=== PATIENT | female | born 1975 | race Caucasian/White ===

== ENCOUNTER → 2018-11-07 | Outpatient (CLI) | payer OTHER ==
[~2018-11-07] MED LIST: LISI1TAB7 PO; VENL75TA PO
--- NOTE | 2018-11-07 15:09 | EKG ---
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 RI6.01 No previous ECG available for comparison Electronically Signed On 11-12-2018 18:31:53 STRATEGIC MARKETING ASSOCIATE by Silviano Mac
[2018-11-07 15:11] LABS: BASO % 1 % (0-3); EOS # 0.2 x10^3/uL (0.0-0.7); EOS % 5 % (0-3); HEMATOCRIT 33.6 % (36.0-47.0); HEMOGLOBIN 10.9 g/dL (12.0-15.5); LYMPH % 27 % (24-48); MEAN CORPUSCULAR HEMOGLOBIN 25 pg (25-35); MEAN CORPUSCULAR HGB CONC 33 g/dL (31-37); MEAN CORPUSCULAR VOLUME 78 fL (79-100); MONO # 0.3 x10^3/uL (0.0-1.1); MONO % 8 % (0-9); NEUT # 2.2 x10^3uL (1.8-7.7); NEUT % 60 % (31-73); PLATELET COUNT 409 x10^3/uL (140-400); RED BLOOD COUNT 4.31 x10^6/uL (3.50-5.40); RED CELL DISTRIBUTION WIDTH 16.7 % (11.5-14.5); WHITE BLOOD COUNT 3.7 x10^3/uL (4.0-11.0)
[2018-11-07 15:17] LABS: BILIRUBIN,URINE NEGATIVE (NEG); CLARITY,URINE CLEAR; COLOR,URINE YELLOW; NITRITE,URINE NEGATIVE (NEG); PROTEIN,URINE NEGATIVE (NEG-TRACE); UROBILINOGEN,URINE 0.2 mg/dL (0.2 mg/dL)
[2018-11-07 15:23] LABS: BACTERIA,URINE FEW /HPF (0-FEW); SQUAMOUS EPITHELIAL CELL,UR OCC /LPF
[2018-11-07 15:24] LABS: ALBUMIN 3.5 g/dL (3.4-5.0); ALBUMIN/GLOBULIN RATIO 0.9 (1.0-1.7); CALCIUM 9.1 mg/dL (8.5-10.1); CREATININE 0.9 mg/dL (0.6-1.0); GFR 68.7; POTASSIUM 3.6 mmol/L (3.5-5.1); TOTAL BILIRUBIN 0.2 mg/dL (0.2-1.0); TOTAL PROTEIN 7.3 g/dL (6.4-8.2)
--- NOTE | 2018-11-07 16:27 | RAD ---
Chest, PA and Lateral: Technique: PA and lateral views of the chest were obtained. History: Preop hysterectomy. Comparison: None. Findings: The heart and pulmonary vasculature appear within normal limits. The lungs are clear. The pleural margins are clear. Impression: No acute chest process is seen. Electronically signed by: Herb Waterman MD (11/07/2018 4:22 PM) [id number]
== END | disposition home or self-care (01) ==
LOC: SURGPAT 14:33
PROVIDERS: ATTEND Obstetrics & Gynecology
DX: Z01.818 Encounter for other preprocedural examination (principal); I10 Essential (primary) hypertension; Z90.710 Acquired absence of both cervix and uterus
CPT/HCPCS: 36415; 71046; 80053; 81001; 85025; 93005

== ENCOUNTER 2018-11-13 08:32 | Inpatient (IN) | payer OTHER ==
[~2018-11-13] VITALS: Ht 162.6 cm; Wt 88.9 kg
[2018-11-13] VITALS (10 sets, daily range): BP systolic 95–125; BP diastolic 55–86
[~2018-11-13 08:32] MED LIST changes: +HYDROmorphone 2 MG/ML VIAL IV PRN; +IV RINGERS,LACTATED 1000ML 1,000 ML IV SCH; +LIDOCAINE 1% PF 2 ML VIAL. ID PRN; +MORPHINE SULFATE 4 MG/ML VIAL. IV PRN; +ONDANSETRON PF 4 MG/2 ML VIAL. IV PRN; +PROCHLORPERAZINE 10 MG/2 ML VIAL. IV PRN; +fentaNYL PF VIAL 100 MCG/2 ML VIAL IV PRN
[2018-11-13 08:55] LABS: U PREG PATIENT NEGATIVE (NEG)
[2018-11-13] MEDS ORDERED: LIDOCAINE 2% PF Vial for OR 5 ML VIAL. ONE (09:47)
[2018-11-13] MEDS ORDERED: ROCURONIUM 50 MG/5 ML VIAL. ONE ×3 (09:47→13:21)
[2018-11-13] MEDS ORDERED: fentaNYL PF VIAL 100 MCG/2 ML VIAL ONE ×2 (09:47→14:40)
[2018-11-13] MEDS ORDERED: PROPOFOL 20 ML IV ONE (09:47)
[2018-11-13] MEDS ORDERED: DEXAMETHASONE SOD PHOS 20 MG/5 ML VIAL. ONE (09:48)
[2018-11-13] MEDS ORDERED: MIDAZOLAM HCL/PF 2 MG/2 ML VIAL. ONE ×2 (09:48→15:45)
[2018-11-13] MEDS ORDERED: ONDANSETRON PF 4 MG/2 ML VIAL. ONE (09:48)
[2018-11-13] MEDS ORDERED: fentaNYL PF VIAL 250 MCG/5 ML VIAL ONE (09:51)
[2018-11-13] MEDS ORDERED: BUPIVACAINE-EPI 0.25%-1:200000 MPF 30 ML VIAL. ONE (10:30)
[2018-11-13] MEDS ORDERED: ESTROGENS, CONJ VAGINAL CREAM 30GM TUBE. ONE (10:30)
[2018-11-13] MEDS ORDERED: METHYLENE BLUE 1% 10 ML VIAL. ONE (10:30)
[2018-11-13] MEDS ORDERED: SEVOFLURANE 61 TO 120 MINUTES. IH ONE (11:30)
[2018-11-13] MEDS ORDERED: ALBUMIN HUMAN 5% 500 ML IV ONE ×2 (12:30→13:06)
[2018-11-13] MEDS ORDERED: GLYCOPYRROLATE 1 MG/5 ML VIAL. ONE (13:36)
[2018-11-13] MEDS ORDERED: NEOSTIGMINE 10 MG/10 ML VIAL. ONE (13:36)
--- NOTE | 2018-11-13 14:20 | PDOC ---
BRIEF OPERATIVE NOTE Date: Nov 13, 2018 Pre-Op Diagnosis menorrhagia, enlarged uterus, anemia Post-Op Diagnosis same plus pelvic adhesive disease Procedure Performed operative scope converted to CHANDRAKANT/LSO/right salpingectomy/adhesiolysis Surgeon Dr. Estrella Hernandez Research And Development Chemist Carrie Botello Anesthesiologist Dr. Ramirez Anesthesia Type: General Blood Loss 2400cc IV Fluid 4L crystalloid, 1000cc albumin Urine Output 150cc clear via lewis Specimens Obtained cervix, uterus, Left tube and ovary, right tube Findings enlarged RV uterus, severe pelvic adhesive disease with Left tube/ovary adhesed to posterior uterus and desc colon; thick area of desc colon adhesed to posterior uterine wall, right tube/ovary adhesed to posterior uterus and right pelvic side wall Complications none Operative Note [id number] ESTRELLA HERNANDEZ MD Nov 13, 2018 14:20
[2018-11-13] MEDS ORDERED: SEVOFLURANE > 120 MINUTES. IH ONE (14:22)
[2018-11-13] MEDS ORDERED: diphenhydrAMINE 50 MG/ML VIAL IV PRN (14:30)
[2018-11-13] MEDS ORDERED: oxyCODONE/APAP 5/325 1 TAB TABLET PO PRN (14:30)
[2018-11-13] MEDS ORDERED: ZOLPIDEM 5 MG TABLET. PO PRN (14:30)
[2018-11-13] MEDS ORDERED: 0.9 % SODIUM CHLORIDE 10 ML DISP.SYRIN. IV PRN (14:30)
[2018-11-13] MEDS ORDERED: diphenhydrAMINE HCL 25 MG CAPSULE PO PRN (14:30)
[2018-11-13] MEDS ORDERED: LACTULOSE 20 GM/30 ML SOLUTION. PO PRN (14:30)
[2018-11-13] MEDS ORDERED: MAG HYDROX/ALUMINUM HYD/SIMETH 30 ML ORAL.SUSP PO PRN (14:30)
[2018-11-13] MEDS ORDERED: NALOXONE 0.4 MG/ML VIAL. IV PRN (14:30)
[2018-11-13] MEDS ORDERED: MAGNESIUM HYDROXIDE 2,400 MG/30 ML ORAL.SUSP. PO PRN (14:30)
[2018-11-13] MEDS ORDERED: ONDANSETRON PF 4 MG/2 ML VIAL. IV PRN (14:30)
[2018-11-13 14:49] LABS: RED BLOOD COUNT 1.98 x10^6/uL (3.50-5.40); RED CELL DISTRIBUTION WIDTH 15.8 % (11.5-14.5); WHITE BLOOD COUNT 10.6 x10^3/uL (4.0-11.0)
[2018-11-13 14:53] LABS: HEMATOCRIT 15.5 % (36.0-47.0); HEMOGLOBIN 5.1 g/dL (12.0-15.5)
--- NOTE | 2018-11-13 15:51 | OP ---
DATE OF SURGERY: 11/13/2018 PREOPERATIVE DIAGNOSES: Menorrhagia, enlarged uterus and anemia. POSTOPERATIVE DIAGNOSES: Menorrhagia, enlarged uterus and anemia with suspected endometriosis and moderate to severe pelvic adhesive disease. PROCEDURE: Operative laparoscopy converted to a CHANDRAKANT-LSO, right salpingectomy and adhesiolysis encompassing at least 15 minutes. SURGEON: Latosha Infante MD. COMMANDING OFFICER TRAFFIC DIVISION: ELKE Neumann. ANESTHESIOLOGIST: Osito Ramirez MD. ANESTHESIA: General. IV FLUIDS: 4 liters of crystalloid and 1000 mL of albumin. ESTIMATED BLOOD LOSS: 2400 mL. URINE OUTPUT: 150 mL. Clear via Mcneil catheter. SPECIMEN OBTAINED: Cervix, uterus, left tube and ovary, right tube. FINDINGS: An enlarged retroverted uterus, severe pelvic adhesive disease with the left tube and ovary adhesed to the posterior uterus and the descending colon, a thick area of the descending colon adhesed to the posterior uterine wall, right tube and ovary adhesed to the posterior uterus and the right pelvic sidewall. COMPLICATIONS: None. DESCRIPTION OF PROCEDURE: This patient was taken to the operating room where general anesthesia was placed. The patient was placed in a dorsal lithotomy position in [facility]. The patient's abdomen and vagina were prepped and draped in the normal sterile fashion and a Mcneil catheter had been inserted under sterile technique. After a timeout was performed, a bivalve speculum was placed in the patient's vagina. A single tooth tenaculum was used to grasp the anterior lip of the cervix. A 10 mL of 0.25% Marcaine with epinephrine was used to circumferentially inject around the cervix for both hemodissection and hemostatic purposes later. The Valtchev uterine manipulator was placed through the endocervical os, locked on the single tooth tenaculum and the bivalve speculum was then removed. Top gloves were discarded and changed. Attention was then turned to the abdomen where a small supraumbilical skin incision was made with the scalpel. A curved Pearl was used to dissect through the subcuticular layer to the fascia. The 5 mm Visiport was used to directly enter the abdominal cavity. Opening patient pressure was 2-3 mmHg. Carbon dioxide gas was used to then appropriately insufflate the abdominal cavity to maintain a pressure of 15 mmHg. The patient was placed in Trendelenburg position. Initially grossly the bowel looked normal, omentum looked normal. Uterus looked enlarged and retroverted, but I could not see tubes and ovaries; bladder appeared normal. So, I went ahead and placed right and left lower quadrant ports under direct visualization. They were all clear on the inside, so transilluminating the abdominal wall, finding an area clear of any vasculature, making a small incision and placing the 5 mm disposable port under direct visualization without difficulty, placing 2 mL of air in each of the cuff. I then did move the camera, looked at the umbilical port, which was clear and placed the air in that one as well. At this point, the LigaSure was obtained and the Maryland's and we went to go manipulate the uterus to look for tubes and ovaries and found pretty severe pelvic adhesive disease on the posterior uterus. The left tube and ovary were completely adhesed to the posterior uterine wall as well as a segment of the descending colon. Descending colon had a large segment adhesed to the posterior uterine wall and the right tube and ovary were adhesed to the posterior uterus and the right pelvic sidewall. After working for a little bit laparoscopically, it was decided especially with the dense colon adhesion, to go ahead and convert to an open procedure as we could not see how far back it went and how deep in went and the left tube and ovary were pretty adhesed as well, not just to the uterus, which was easy to take down, but to the colon as well, so it was decided to convert to open. So, we took the right and left lower quadrant ports out under direct visualization. We released the gas from the cuff, removed them under direct visualization. They were hemostatic. Gas was released from the umbilical port, 2 mL of air was taken out of it as well. All three of those were closed with 4-0 nylon at the skin and injected with local. At this point, a small Pfannenstiel skin incision was made with the scalpel. Bovie cautery was used in the subcuticular layer to maintain hemostasis. The fascia was then scored in the midline and extended sharply and bluntly bilaterally. Ruddy clamps x 2 were placed on the superior fascial edge and the fascia was dissected from the rectus muscles beneath sharply and bluntly as well. Bovie cautery again was used for hemostasis in this layer. The Kochers were then put inferiorly and taken down to the pubic bone and the curved Ramsey scissors were used to take the rectus muscles off the fascia below. The rectus muscles were in the midline and the peritoneum was digitally and bluntly entered and stretched. The O'Nawaf-O'Figueroa retractor was placed, first packing away the bowel with 3 moist laps, placing it in and then placing an upper blade and then a bladder blade lower, placing a curved long pean on the right cornua. The left cornua was so adhesed and pulled down posteriorly, I could not even see it. So, I started with the right round ligament, placing 2-0 Vicryl sutures in it, taking the Bovie cautery and going between it and then starting to create the bladder flap anteriorly. I was able to just manually move the uterus over and tried to put a curved pean on just the side of the uterus, I did not have the cornua because it was still being tented and pulled around from that tube and ovary adhesion posteriorly and twisting the uterus around, but I was able to find the round ligament on the left side, so I placed 2-0 Vicryl stitches on this was well, cauterized between them and then went down and further met that bladder flap anteriorly. I was able to get the right tube up, but the ovary was still stuck, so I went ahead and took the right tube up and went on the right uterine ovarian pedicle and double clamped it with curved Heaneys, cut with Ramsey scissors and suture ligated x 2 and then skeletonized the right side, so I could get the curved Heaneys around the right uterine vessels since the bladder was down in front. Those were doubly clamped. A straight Ruddy was placed for back bleeding and curved Ramsey scissors were used to cut it and then suture ligate it with 0 Vicryl x 2. Staying inside that pedicle, again making sure the bladder was down, straight Heaneys were used to hug the cervix and go through the cardinal and broad ligaments in a couple bites on the right side, double clamping them with curved Heaneys, cutting with the long knife and then suture ligating x 2 with 0 Vicryl. At this point, I did switch sides and I went ahead and just cut the uterine-ovarian pedicle on this side leaving the left tube and ovary as they were severely adhesed. Using blunt dissection to go down the back of the uterus, I was able to get the colon off the back of the uterus as well as the tube and ovary, but I just focused on the hysterectomy at this point and went back at the end and looked at both ovaries. So at this point, I was skeletonizing the left side and then curved Heaneys were placed over the uterine vessels on this side, again a straight Ruddy for backbleeding and cutting with Ramsey scissors and suture ligating x 2 with 0 Vicryl. Staying inside this pedicle again making sure the bladder was down in front, straight Heaneys were placed inside that pedicle going through the cardinal and broad ligaments hugging the cervix, cutting with the long knife and suture ligating with 0 Vicryl. Once this had been done, posteriorly was clear, anteriorly was good and the bladder was down. I believe a couple of more straight Heaneys were taken until I got to the uterosacrals and curved Heaneys were placed over this where they were doubly clamped, cut with Ramsey scissors and entering the vagina and then using the curved scissors and Uma's to amputate the cervix and uterus. Cervix and uterus were passed off in total. Long Ruddy's were placed on the vaginal cuff anterior and posterior and then in interrupted sutures with 2-0 Vicryl, first taking the corner stitch through the uterosacral and tagging them on both sides, interrupted sutures and then in a series of [id number] interrupted stitches, 4 or 5 stitches going across with 2-0 Vicryls closing the cuff and tagging them. Once this was done, I went back, the right ovary looked good. I did close the peritoneum over it as it was adhesed with a 2-0 Vicryl and closed that with excellent results. There was some friable bleeding from the surface of the colon where it had been peeled off, the posterior uterine wall, but nothing overtly bleeding, just surface raw edge bleeding. The cuff looked good and now I was looking at the left tube and ovary. This was completely adhesed and friable and had a cyst on it, so I went ahead and decided to take the left tube and ovary and it looked like it had an endometrial implant on it and a cyst, so I took a Lucy, elevated the left tube and ovary, finished taking down all the adhesions, could feel the ureter low and stayed high right under the ovary on the IP ligament, double clamping it with curved Heaneys and cutting with the curved Ramsey scissors and removed the left tube and ovary. So at this point, all that remained was the right ovary, so the left tube and ovary were passed off as a separate specimen at the end. The cuff had been closed. The right tube came out initially, so the right ovary remains for hormones per patient request. I irrigated with copious irrigation. There was some friable bleeding I had mentioned earlier. I put Eloy over this with excellent results. Again, the remaining right ovary looked good. The cuff looked good. The left ovarian pedicle looked good. The round ligaments looked good. So all of the tags were clipped at this point and the rectus muscles and subcuticular layer were examined, they were hemostatic. So, 0 Vicryl was used to close from the patient's right to just past midline and left to just past midline with two different 0 Vicryl and tied together in the middle. Copious irrigation in the subcutaneous again then revealed hemostasis and 3-0 Vicryl was used to close the subcuticular layer, Stuart's layer and then 3-0 Monocryl was being used to close the skin with Steri-Strips and Dermabond. The patient was stable and is currently being awakened from anesthesia. LATOSHA INFANTE MD DR: MOLLY/jos JOB#: [id number] / [id number]
[2018-11-13] MEDS ORDERED: MIDAZOLAM HCL/PF 2 MG/2 ML VIAL. IV ONE (16:30)
[2018-11-13] MEDS: MORPHINE SULFATE 4 MG/ML VIAL. IV PRN ×2 (17:23→19:44)
[2018-11-13] MEDS: ALPRAZolam 0.25 MG TABLET PO PRN (22:11)
[2018-11-13] MEDS: HYDROcodone/APAP 5/325MG 1 TAB TABLET PO PRN (22:11)
[2018-11-13 23:47] LABS: HEMATOCRIT 26.7 % (36.0-47.0); HEMOGLOBIN 9.1 g/dL (12.0-15.5)
[2018-11-14] MEDS: HYDROcodone/APAP 5/325MG 1 TAB TABLET PO PRN ×3 (05:40→16:04)
[2018-11-14] MEDS: ALPRAZolam 0.25 MG TABLET PO PRN ×2 (06:11→16:03)
[2018-11-14 06:30] VITALS: BP 109/75
[2018-11-14 07:28] LABS: CALCIUM 7.8 mg/dL (8.5-10.1); CREATININE 0.7 mg/dL (0.6-1.0); GFR 91.8; POTASSIUM 3.9 mmol/L (3.5-5.1)
--- NOTE | 2018-11-14 08:51 | PDOC ---
SURGICAL PROGRESS NOTE Subjective feeling better, up drinking coffee. Moderate pain with moving Vital Signs Vital Signs Date Time Temp Pulse Resp B/P (MAP) Pulse Ox O2 Delivery O2 Flow Rate FiO2 11/14/18 06:30 97.9 117 18 109/75 (86) Room Air 98.0 97.9 11/13/18 23:02 99 I&O Intake and Output 11/14/18 07:00 Intake Total 5470 ml Output Total 3675 ml Balance 1795 ml Intake Oral 700 ml IV Total 4050 ml Blood Product IV Normal Saline Flush 720 ml Output Urine Total 1275 ml Estimated Blood Loss 2400 ml PATIENT HAS A SANTA: No General: Alert, Oriented X3, Cooperative, mild distress HEENT: Atraumatic Heart: Regular rate Abdomen: Soft, No tenderness, No masses (bandage c/d/i) Extremities: No clubbing, No cyanosis Skin: No rashes, No breakdown Neuro: Normal speech Psych/Mental Status: Mental status NL, Mood NL Labs Laboratory Tests Test 11/13/18 08:45 11/13/18 14:40 11/13/18 23:30 11/14/18 06:15 Urine Test Negative (NEG) White Blood Count 10.6 x10^3/uL (4.0-11.0) Red Blood Count 1.98 x10^6/uL (3.50-5.40) Hemoglobin 5.1 g/dL (12.0-15.5) 9.1 g/dL (12.0-15.5) Hematocrit 15.5 % (36.0-47.0) 26.7 % (36.0-47.0) 25.3 % (36.0-47.0) Mean Corpuscular Volume 78 fL (79-100) Mean Corpuscular Hemoglobin 26 pg (25-35) Mean Corpuscular Hemoglobin Concent 33 g/dL (31-37) 34 g/dL (31-37) Red Cell Distribution Width 15.8 % (11.5-14.5) Platelet Count 305 x10^3/uL (140-400) Sodium Level 141 mmol/L (136-145) Potassium Level 3.9 mmol/L (3.5-5.1) Chloride Level 107 mmol/L (98-107) Carbon Dioxide Level 26 mmol/L (21-32) Anion Gap 8 (6-14) Blood Urea Nitrogen 10 mg/dL (7-20) Creatinine 0.7 mg/dL (0.6-1.0) Estimated GFR (Cockcroft-Gault) 91.8 Glucose Level 121 mg/dL (70-99) Calcium Level 7.8 mg/dL (8.5-10.1) Laboratory Tests Test 11/13/18 08:45 11/13/18 14:40 11/13/18 23:30 11/14/18 06:15 Urine Test Negative (NEG) White Blood Count 10.6 x10^3/uL (4.0-11.0) Red Blood Count 1.98 x10^6/uL (3.50-5.40) Hemoglobin 5.1 g/dL (12.0-15.5) 9.1 g/dL (12.0-15.5) Hematocrit 15.5 % (36.0-47.0) 26.7 % (36.0-47.0) 25.3 % (36.0-47.0) Mean Corpuscular Volume 78 fL (79-100) Mean Corpuscular Hemoglobin 26 pg (25-35) Mean Corpuscular Hemoglobin Concent 33 g/dL (31-37) 34 g/dL (31-37) Red Cell Distribution Width 15.8 % (11.5-14.5) Platelet Count 305 x10^3/uL (140-400) Sodium Level 141 mmol/L (136-145) Potassium Level 3.9 mmol/L (3.5-5.1) Chloride Level 107 mmol/L (98-107) Carbon Dioxide Level 26 mmol/L (21-32) Anion Gap 8 (6-14) Blood Urea Nitrogen 10 mg/dL (7-20) Creatinine 0.7 mg/dL (0.6-1.0) Estimated GFR (Cockcroft-Gault) 91.8 Glucose Level 121 mg/dL (70-99) Calcium Level 7.8 mg/dL (8.5-10.1) I have reviewed the following labs, vitals, nursing Cardiovascular: No pertinent hx Pulmonary: No pertinent hx GI: No pertinent hx Heme/Onc: Anemia NOS Psych: Anxiety Assessment/Plan POD #1 s/p CHANDRAKANT/LSO/right salpingectomy/adhesiolysis routine po care advance diet ambulate continue to monitor LATOSHA INFANTE MD Nov 14, 2018 08:51
[2018-11-14] MEDS: LISINOPRIL 20 MG TABLET PO SCH (09:00)
[2018-11-14] MEDS: hydroCHLOROthiazide 25 MG TABLET PO SCH (09:00)
[2018-11-14] MEDS ORDERED: NON FORMULARY ITEM (Lisinopril/Hydrochlorothiazide (Lisinopril-Hctz 20-25 Mg Tab) 1 TAB) PO SCH (09:00)
[2018-11-14] MEDS: SIMETHICONE 80 MG TAB.CHEW PO PRN ×2 (09:25→16:04)
[2018-11-14] MEDS: CALCIUM CARBONATE 500 MG TAB.CHEW PO PRN ×2 (09:25→16:02)
[2018-11-14 11:20] VITALS: BP 129/87
[2018-11-14 15:30] VITALS: BP 122/90
[2018-11-14 21:34] VITALS: BP 124/82
[2018-11-15] MEDS: ALPRAZolam 0.25 MG TABLET PO PRN (00:28)
[2018-11-15] MEDS: HYDROcodone/APAP 5/325MG 1 TAB TABLET PO PRN ×2 (00:28→05:39)
[2018-11-15 05:15] VITALS: BP 109/68
[2018-11-15 08:45] VITALS: BP 117/78
[2018-11-15] MEDS: LISINOPRIL 20 MG TABLET PO SCH (09:00)
[2018-11-15] MEDS: hydroCHLOROthiazide 25 MG TABLET PO SCH (09:00)
--- NOTE | 2018-11-15 09:11 | PDOC ---
SURGICAL PROGRESS NOTE Subjective Doing well without complaints. Scant VB. Tolerating regular diet, voiding without catheter and wants to go home. Vital Signs Vital Signs Date Time Temp Pulse Resp B/P (MAP) Pulse Ox O2 Delivery O2 Flow Rate FiO2 11/15/18 06:40 16 Room Air 11/15/18 05:39 94 11/15/18 05:15 100.0 118 109/68 (82) 100.0 118 11/14/18 08:00 2.0 I&O Intake and Output 11/15/18 07:00 Intake Total 2200 ml Output Total 550 ml Balance 1650 ml Intake Oral 1800 ml Other 400 ml Output Urine Total 550 ml # Voids 3 # Bowel Movements 1 PATIENT HAS A SANTA: No General: Alert, Oriented X3, Cooperative, No acute distress HEENT: Atraumatic Heart: Regular rate Abdomen: Soft, No tenderness, Other (incisions and port sites all c/d/i) Extremities: No clubbing, No cyanosis, No edema, No tenderness/swelling Skin: No rashes, No breakdown Neuro: Normal speech Psych/Mental Status: Mental status NL, Mood NL Labs Laboratory Tests Test 11/13/18 14:40 11/13/18 23:30 11/14/18 06:15 White Blood Count 10.6 x10^3/uL (4.0-11.0) Red Blood Count 1.98 x10^6/uL (3.50-5.40) Hemoglobin 5.1 g/dL (12.0-15.5) 9.1 g/dL (12.0-15.5) Hematocrit 15.5 % (36.0-47.0) 26.7 % (36.0-47.0) 25.3 % (36.0-47.0) Mean Corpuscular Volume 78 fL (79-100) Mean Corpuscular Hemoglobin 26 pg (25-35) Mean Corpuscular Hemoglobin Concent 33 g/dL (31-37) 34 g/dL (31-37) Red Cell Distribution Width 15.8 % (11.5-14.5) Platelet Count 305 x10^3/uL (140-400) Sodium Level 141 mmol/L (136-145) Potassium Level 3.9 mmol/L (3.5-5.1) Chloride Level 107 mmol/L (98-107) Carbon Dioxide Level 26 mmol/L (21-32) Anion Gap 8 (6-14) Blood Urea Nitrogen 10 mg/dL (7-20) Creatinine 0.7 mg/dL (0.6-1.0) Estimated GFR (Cockcroft-Gault) 91.8 Glucose Level 121 mg/dL (70-99) Calcium Level 7.8 mg/dL (8.5-10.1) I have reviewed the following labs, vitals, nursing Cardiovascular: HTN Pulmonary: No pertinent hx GI: No pertinent hx Heme/Onc: Anemia NOS Psych: Anxiety Rheumatologic: No pertinent hx Infectious disease: No pertinent hx Assessment/Plan POD #2 s/p operative scope converted to CHANDRAKANT/LSO/right salpingectomy and adhesiolysis 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
--- NOTE | 2018-11-15 09:16 | PDOC3 ---
Discharge Summary Visit Information Date of Admission: Nov 13, 2018 Date of Discharge: Nov 15, 2018 Final Diagnosis menorrhagia, anemia, enlarged uterus, pelvic adhesive disease Brief Hospital Course Allergies Allergies Coded Allergies Type Severity Reaction Last Updated Verified No Known Drug Allergies 11/13/18 No Vital Signs Vital Signs Date Time Temp Pulse Resp B/P (MAP) Pulse Ox O2 Delivery O2 Flow Rate FiO2 11/15/18 06:40 16 Room Air 11/15/18 05:39 94 11/15/18 05:15 100.0 118 109/68 (82) 100.0 118 11/14/18 08:00 2.0 Lab Results Laboratory Tests Test 11/13/18 14:40 11/13/18 23:30 11/14/18 06:15 White Blood Count 10.6 x10^3/uL (4.0-11.0) Red Blood Count 1.98 x10^6/uL (3.50-5.40) Hemoglobin 5.1 g/dL (12.0-15.5) 9.1 g/dL (12.0-15.5) Hematocrit 15.5 % (36.0-47.0) 26.7 % (36.0-47.0) 25.3 % (36.0-47.0) Mean Corpuscular Volume 78 fL (79-100) Mean Corpuscular Hemoglobin 26 pg (25-35) Mean Corpuscular Hemoglobin Concent 33 g/dL (31-37) 34 g/dL (31-37) Red Cell Distribution Width 15.8 % (11.5-14.5) Platelet Count 305 x10^3/uL (140-400) Sodium Level 141 mmol/L (136-145) Potassium Level 3.9 mmol/L (3.5-5.1) Chloride Level 107 mmol/L (98-107) Carbon Dioxide Level 26 mmol/L (21-32) Anion Gap 8 (6-14) Blood Urea Nitrogen 10 mg/dL (7-20) Creatinine 0.7 mg/dL (0.6-1.0) Estimated GFR (Cockcroft-Gault) 91.8 Glucose Level 121 mg/dL (70-99) Calcium Level 7.8 mg/dL (8.5-10.1) Brief Hospital Course Ms. Davalos is a 43 old female who presented with enlarged fibroid uteurs, menorrhagia and anemia. She underwent an attempted LAVH but was converted to CHANDRAKANT due to pelvic adhesive disease involving colon and both tubes and ovaries to uterus and side escalera. She underwent CHANDRAKANT/LSO/right salpingectomy and adhesiolysis. In the recovery room her hgb was 5.1, so she was transfused 3u PRBCs the afternoon/evening of her surgery. 2hrs after transfusion she responded appropriately with hgb coming up to 9 and rechecked the next morning and still stable. She has since then been doing well, ambulating well, no vaginal bleeding, tolerating regular diet and voiding without catheter. She is wanting to go home today. Discharge Information Condition at Discharge: Stable Follow Up: Weeks Disposition/Orders: D/C to Home Scheduled Lisinopril/Hydrochlorothiazide (Lisinopril-Hctz 20-25 Mg Tab) 1 Each Tablet, 1 TAB PO DAILY for bp, #30 Ref 5 (Reported) Entered as Reported by: BRENDA JOSEPH on 11/07/18 1457 Last Taken: Unknown Dose on 11/12/18 Last Action: Converted on 11/13/18 1038 by LATOSHA INFANTE Venlafaxine Hcl (Venlafaxine Hcl) 75 Mg Tablet, 75 MG PO DAILY for anxiety, ( Reported) Entered as Reported by: BRENDA JOSEPH on 11/07/18 1455 Last Taken: Unknown Dose on 11/12/18 Last Action: HELD on 11/13/18 1038 by LATOSHA INFANTE Patient Instructions Patient Instructions POD #2 s/p operative scope converted to CHANDRAKANT/LSO/right salpingectomy and adhesiolysis 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
--- NOTE | 2018-11-15 13:06 | PATHOLOGY ---
[facility] Accession Number: [id number] . 01 Material submitted: . UTERUS, CERVIX, BILATHERAL FALLOPIAN TUBES , AND LEFT OVARY . 01 Clinical history: . Abnormal vaginal bleeding . 02 Diagnosis: Uterus and attached right fallopian tube and detached left fallopian tube and ovary, total abdominal hysterectomy with bilateral salpingectomy and left oophorectomy: - Leiomyomas (3), uterine corpus, intramural, the largest measuring 5.8 cm in greatest dimension. - Uterine serosal adhesions. - Mild chronic cervicitis with focal squamous metaplasia. - Endocervical polyp. - Proliferative endometrium. - Adenomyosis, uterine corpus, sub basal, focal. - Focal endometriosis of left fallopian tube with focal mild hematosalpinx. - Focal endometriosis and capsular adhesions of left ovary. - Cystic follicles of left ovary. - Small focus of organizing fat necrosis with calcification of left ovarian capsule. - Right fallopian tube showing no diagnostic abnormalities. [facility]/11/15/2018 . 02 Comment: There is no atypia or evidence of malignancy. . (JPM:pit 11/15/2018) . 02 Electronically signed: . Jeff Andrade MD, Pathologist NPI- [id number] . 01 Gross description: . The specimen is received in formalin, labeled "Mary Davalos, uterus, cervix, bilateral fallopian tubes, left ovary". Received is a 308 g, 12.9 x 8.4 x 7.4 cm uterus with attached cervix, attached right fallopian tube weighing 4 g, and detached left adnexa weighing 27 g. The uterine serosa is light julio in appearance with overlying adhesions, and is slightly disrupted along the fundal aspect. The 1.4 cm cervical os is surrounded by pale julio, smooth ectocervical mucosa. The posterior aspect of the cervix is grossly absent. The uterus is opened laterally to reveal a pale julio, corrugated endocervical canal measuring 4.2 cm in length displaying an endocervical polyp measuring 1.6 x 0.7 x 0.3 cm in greatest dimensions. The polyp is removed and the margin is inked black. The endometrial cavity is tear-drop shaped measuring 5.5 cm in length by 3.4 cm in width. The endometrium is pale julio to pink-red, glistening in appearance and measures 0.1 cm in thickness. Serial sectioning reveals a julio-pink, trabeculated myometrium measuring up to 6.1 cm in thickness displaying three intramural fibroids ranging in size from 0.5 to 5.8 cm in maximum dimensions. . The left adnexa consists of a fimbriated fallopian tube measuring 7.8 cm in length by up to 1.0 cm in diameter attached to a 3.8 x 3.5 x 2.5 cm disrupted ovary. Sectioning through the fallopian tube reveals a dilated lumen. The ovarian surface displays a pale julio nodule measuring 0.4 cm in maximum dimensions. Sectioning through the ovary reveals multiple cystic structures ranging in size from 0.3 to 0.8 cm filled with blood-tinged fluid. Remaining cut surfaces display pale julio, normal ovarian stroma. . The right fimbriated fallopian tube measures 6.0 cm in length by up to 0.8 cm in diameter. Sectioning reveals a pinpoint lumen. The specimen is submitted representatively as follows: . 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 (CAA; 11/14/2018) QAC/QAC . 02 Pathologist provided ICD-10: D25.1, N72, N84.1, N80.9 . 02 CPT . 787486 Specimen Comment: A courtesy copy of this report has been sent to Specimen Comment: [phone]. Specimen Comment: Report sent to Performed at: [address], [place], [place] [id number] MD Chele Quiroz MD Phone: [phone] Performed at: 02 [facility] [address] [place], [place] [id number] MD Jeff Andrade MD Phone: [phone]
== END 2018-11-15 16:00 | disposition home or self-care (01) | DRG 743 ==
LOC: SURG 08:32 → EDUNIT# 10:00 → 3 NORTH 13:00
PROVIDERS: ADMIT Obstetrics & Gynecology; ATTEND Obstetrics & Gynecology
PROC: 0UJD4ZZ Inspection of Uterus and Cervix, Percutaneous Endoscopic Approach (ICD-10-PCS; 2018-11-13)
PROC: 0UT70ZZ Resection of Bilateral Fallopian Tubes, Open Approach (ICD-10-PCS; 2018-11-13)
PROC: 0UT10ZZ Resection of Left Ovary, Open Approach (ICD-10-PCS; 2018-11-13)
PROC: 0DNM0ZZ Release Descending Colon, Open Approach (ICD-10-PCS; 2018-11-13)
PROC: 30233N1 Transfusion of Nonautologous Red Blood Cells into Peripheral Vein, Percutaneous Approach (ICD-10-PCS; 2018-11-13)
PROC: 0UT90ZZ Resection of Uterus, Open Approach (ICD-10-PCS; principal; 2018-11-13 10:00)
DX: D25.9 Leiomyoma of uterus, unspecified (principal); N92.0 Excessive and frequent menstruation with regular cycle; N85.2 Hypertrophy of uterus; D64.9 Anemia, unspecified; N73.6 Female pelvic peritoneal adhesions (postinfective); N85.4 Malposition of uterus; Z53.31 Laparoscopic surgical procedure converted to open procedure
CPT/HCPCS: 36415; 80048; 81025; 85014; 85018; 85027; 86850; 86900; 86901; 86920; 88307; A7015; J0696; J1100; J2001; J2250; J2270; J2405; J2704; J2710; J3010; J3490; J7030; J7120; P9016; P9045; Q9968